=== PATIENT | female | born 1960 | race Caucasian/White ===

== ENCOUNTER 2024-09-20 13:26 | Emergency (ER) | payer BC, SELFPAY ==
--- NOTE | ~2024-09-20 | XR_ITS ---
XR ankle RT min 3V Ordering provider: Neli Wisdom NP History: . injury . Comparison: None. FINDINGS: BONES: Fracture in the distal metaphysis of the right fibula is noted. No other fractures seen.. JOINT SPACES: Normal. SOFT TISSUES: Normal. IMPRESSION: Fracture distal metaphysis of the right fibula. Reviewed, dictated and finalized at location A.
--- NOTE | 2024-09-20 13:28 | ED_ITS ---
HPI - Extremity Injury (Lower) General Chief Complaint: Extremity Injury, Lower Stated Complaint: Right Ankle Injury Time Seen by Provider: 09/20/24 14:20 Source: patient and RN notes reviewed Mode of arrival: ambulatory Limitations: no limitations History of Present Illness HPI Narrative: 63-year-old female presents with concern of for injury to her right ankle. She reports prior to arrival she was going to golf and she stepped in a hole. Reports lateral pain, swelling. Reports she is unable to bear weight on the ankle. She denies decreased strength, sensation, range of motion in the foot or digits. MD complaint: ankle injury Related Data Home Medications Medication Instructions Recorded Confirmed Last Taken Type hydroxyzine pamoate 25 mg capsule mg 09/20/24 Unknown History rizatriptan 10 mg tablet mg 09/20/24 Unknown History thyroid (pork) 30 mg tablet mg 09/20/24 Unknown History topiramate 200 mg tablet mg 09/20/24 Unknown History Allergies Allergy/AdvReac Type Severity Reaction Status Date / Time No Known Allergies Allergy Verified 09/20/24 13:42 Review of Systems Review of Systems: CONSTITUTIONAL: Denies malaise, chills, sweats, or fever. SKIN: Denies rash or itching, open skin, laceration, abrasion, redness, warmth MUSCULOSKELETAL: Reports right ankle pain and swelling NEUROLOGIC: Denies numbness, weakness All systems reviewed & are unremarkable except as noted in HPI and below PMFSH Comments At time of signature, agree with nursing past medical, surgical, social and fam paul history. There is no relevant family history pertinent to the presenting complaint Exam Narrative: GENERAL: Well-appearing, well-nourished, and in no acute distress. HEAD: Normocephalic, atraumatic. EYES: PERRLA, conjunctivae clear NECK: Supple. CHEST: Speaks in full sentences. No respiratory distress. HEART: Regular rate and rhythm. Normal and equal peripheral pulses. EXTREMITIES: Right ankle, foot, digits have grossly normal strength and sensation, grossly normal range of motion. Lateral edema with mild ecchymosis and no erythema. Normal sensation with sensitivity to light touch and pain. Lateral ankle tenderness. No open wounds, no skin tenting, no devitalized tissue or atrophy, no trophic changes, no obvious deformity, alignment normal, nearby joints and structures intact. Distal pulses palpable and equal bilaterally, skin warm, dry, pink. Capillary refill less than 3 seconds. SKIN: Warm, dry, no rash. NEURO: Alert and oriented x3. PSYCH: Normal mood and affect Course Course Emergency Course: Patient is aware of diagnosis, understands and agrees to treatment plan. Anticipatory guidance given. Patient agrees to follow-up as directed and is aware of reasons to seek care at the emergency department. Portions of this record may have been created with voice recognition software Level of Care: Express Care Visit Vital Signs Vital signs: Reviewed. Procedures Orthopedic Splinting/Casting Injury #1: Splinting/Casting Date: 09/20/24 Splinting/Casting Time: 15:13 Side: right Lower Extremity Injury Location: ankle OCL: short leg Pre-Procedure Neuro Vascular Exam: normal Post-Procedure Neuro Vascular Exam: normal Other Orthopedic Equipment: crutches MDM - Extremity Injury (Lower) MDM Narrative Medical decision making narrative: The patient was evaluated by myself in the [facility] care. History is obtained from patient who is an independent historian and physical exam was performed. Available medical records were reviewed at this time. Exam findings show no acute concerns or changes; patient is non-toxic appearing and is in no distress. Patient is appropriate for outpatient treatment and follow-up. I have evaluated and discussed social determinants of health with the patient that could potentially impact subsequent diagnosis and treatment plans. Patients injury and pain is consistent with musculoskeletal etiology. No signs of neurological or vascular compromise on exam. Compartments and tissues are soft without signs of compartment syndrome. Pain is felt appropriate for further evaluation on an outpatient basis. Imaging Data My impression: Images reviewed, interpreted by radiologist, agree, see report. Radiologist's impression: XR ankle RT min 3V Ordering provider: Neli Wisdom NP History: . injury . Comparison: None. FINDINGS: BONES: Fracture in the distal metaphysis of the right fibula is noted. No other fractures seen.. JOINT SPACES: Normal. SOFT TISSUES: Normal. IMPRESSION: Fracture distal metaphysis of the right fibula. Critical Care Time Critical Care Time Critical Care Time: No Discharge Plan Discharge Clinical Impression: Fibula fracture Qualifiers: Encounter type: initial encounter Fibula location: shaft Laterality: right Patient Disposition: Home Condition: Stable Instructions: Ankle Fracture (ED) Additional Instructions: Please rest, ice and elevate the affected extremity. Please take Motrin 600mg every 8 hours, as needed, for pain (take with food), take pain medicine for pain that is not controlled with ibuprofen. Follow up with Orthopedic Surgery in 1-2 days for further evaluation - please call for an appointment. Keep cast clean, dry and on. Please use garbage bag while showering to keep cast dry. Use crutches and do not bear weight on your right ankle. Please go to ER immediately for increased pain, tingling/numbness, swelling, redness, and fever Patient Language: Puerto Rican Prescriptions: New ibuprofen 800 mg tablet 800 mg PO Q6H PRN (Reason: pain) Qty: 30 0RF hydrocodone-acetaminophen 5-325 mg tablet 1 tablet PO Q6H PRN (Reason: pain) Qty: 14 0RF No Action rizatriptan 10 mg tablet topiramate 200 mg tablet hydroxyzine pamoate 25 mg capsule thyroid (pork) 30 mg tablet Follow-up/Referrals: Tenzin,Adi Morales MD [Primary Care Provider] - Sterling Velez MD [Physician] - Time of Disposition: 15:14
--- OUTSIDE RECORDS SUMMARY | 2024-09-20 13:34 | XMS_ITS | Referral Summary ---
Author Organization [facility] Address [address] [place] [address] Care Team Providers Care Hot Dip Plater Name Role Phone Adi Dave MD Primary Care Provider [phone] Valerio Herrera MD Unavailable [phone] Allergies Active Allergy Reactions Criticality Noted Date Comments Penicillins Rash Medium Medications topiramate (TOPAMAX) 200 mg tablet Take 1 tablet (200 mg total) by mouth 2 (two) times a day Active fluticasone-um eclidin-vilant er (Trelegy Ellipta) 100-62.5-25 mcg inhaler Inhale 1 puff daily Active hydrOXYzine (ATARAX) 25 mg tablet Take 1 tablet (25 mg total) by mouth nightly Active multivitamin tabletIndicati ons:Vitamin Deficiency Prevention Take 2 tablets by mouth regional extension service specialist before breakfast Active albuterol HFA (PROVENTIL HFA,VENTOLIN HFA,PROAIR HFA) 90 mcg/actuation inhaler Inhale 1 puff as needed 02/14/20 22 Active sod lnsjs-udrqvy-p queez bottle 2,300-700 mg kit Administer 2 sprays into each nostril 2 (two) times a day 1 kit 2 06/24/19 23 Active Additional Information Patient not taking.Reported on 12/29/2023 oxyCODONE (ROXICODONE) 5 mg immediate release tabletIndicati ons:Pain Take 1 tablet (5 mg total) by mouth every 4 (four) hours as needed for pain 30 tablet 06/24/19 23 Active Additional Information Patient not taking.Reported on 12/29/2023 HYDROcodone-ib uprofen (VICOPROFEN) 5-200 mg per tablet 10/03/19 23 Active rizatriptan (MAXALT) 10 mg tablet 03/24/20 23 Active budesonide (Pulmicort) 0.5 mg/2 mL nebulizer solution Mix 2 ml into 240 ml nasal saline sinus rinse and perform nasal rinse. Squeeze half of the bottle in each nostril two times daily. 180 mL 5 04/03/20 23 Active Additional Information Patient not taking.Reported on 12/29/2023 Nurtec ODT tablet,disinte grating 12/08/19 24 Active semaglutide (Ozempic) 0.25 mg or 0.5 mg (2 mg/3 mL) pen injector injection inject (0.25MG) by subcutaneous route every week 10/30/19 24 Active zavegepant (Zavzpret) 10 mg/actuation spray,non-aero han Administer into affected nostril(s) Active nortriptyline (PAMELOR) 10 mg capsule TAKE 2 CAPSULES (20 MG TOTAL) BY MOUTH NIGHTLY 180 capsule 3 09/10/19 25 026 Active nortriptyline (PAMELOR) 10 mg capsule Take 2 capsules (20 mg total) by mouth nightly 180 capsule 1 03/07/20 24 025 Discontinued Active Problems Problem Noted Date Diagnosed Date Nausea without vomiting 02/01/2024 Assessment & Plan (02/01/2024 6:39 PM CDT): Has intermittent nausea epigastric discomfort which is better with food. Upper endoscopy was normal. Negative ultrasound. CT scan we are waiting for the report from [address] Valerio Herrera her urologist for follow-up of renal cell carcinoma. In the meantime the findings suggest this may be a functional disorder and will begin nortriptyline 10 mg p.o. q.h.s.. Patient was to notify me within 3 weeks of her response. Epigastric pain 12/29/2023 Assessment & Plan (02/01/2024 6:40 PM CDT): Occurs with the nausea which is worse on empty stomach. Upper endoscopy negative. Ultrasound normal. CT scan recently performed and have asked the patient to get me a copy. Begin nortriptyline 10 mg q.h.s. Assessment & Plan (12/29/2023 6:50 PM CDT): Ultrasound negative without gallstones. Persistent for several months. This was also present in 2014. Due to hematemesis needs upper endoscopy to rule out peptic disease and neoplasm and will decide on further treatment at that time. Regarding the recurrent nausea consider also possibility of migraine variant Abdominal pain, epigastric 12/29/2023 Chronic sinusitis 04/03/2022 Overview (04/03/2022): Added automatically from request for surgery [id number] Urinary urgency 02/27/2022 Assessment & Plan (02/27/2022 7:37 PM CDT): Discussed options for management of urinary urgency and urge incontinence. Will check UA/C&S first. Candidal vulvovaginitis 02/27/2022 Assessment & Plan (02/27/2022 7:34 PM CDT): Mycolog II ointment BID for 7 days to rash in right groin. Diflucan 150 po time one. Renal cell carcinoma 07/14/2020 Assessment & Plan (12/29/2023 6:53 PM CDT): Following previous surgery Patient had recent CT scan obtained through urologist Dr. Valerio Herrera at the CT scanner off of [address] [address] I have asked to review a copy of this report particularly with regards to her epigastric pain and her history of pouch vaginal fistula Sinus problem 03/09/2020 Assessment & Plan (03/09/2020 11:14 AM BLACK LEATHER TRIMMER): Patient was recently exposed to COVID and is currently on abx and steroids. In addition: Self-isolate 10 days from start of symptoms Increase fluid intake Report new or worsening symptoms Warning signs warranting immediate medical care: chest pain, trouble breathing, worsening shortness of breath Encounter for gynecological examination without abnormal finding 04/02/2017 Assessment & Plan (02/27/2022 7:33 PM CDT): Pelvic exam and breast exam done. Schedule mammogram. Return in one year. Assessment & Plan (09/20/2020 7:41 PM CDT): Pap smear and breast exam done. Schedule mammogram and DEXA. Return in one year. Assessment & Plan (04/02/2017 10:16 PM BLACK LEATHER TRIMMER): Pelvic exam and breast exam done. Calcium and vitamin D list given to patient. Return in one year. 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 She had previous repairs 2002 and 2004 and has persistence of the J pouch vaginal fistula. Assessment & Plan (12/29/2023 6:51 PM CDT): This is really a pouch vaginal fistula and will plan on pouchoscopy when this can be arranged. The upper endoscopy takes precedence at this time due to the recent hematemesis. Patient 'spouch function has been relatively stable. The Ozempic has significantly reduced bowel movement frequency. Dyspnea Resolved Problems Problem Noted Date Diagnosed Date Resolved Date Chronic obstructive lung disease 02/19/2019 12/29/2023 Immunizations Immunization Administration Dates Next Due Influenza, Quadrivalent, Hig h Dose, Preservative Free, Intrr 02/03/2021 Influenza, Quadrivalent, Rec ombinant, Egg Free, Preservative Free, Intramuscular 02/02/2019 Influenza, Trivalent, IM (MDV) 02/16/2021 Pfizer SARS-CoV-2 Monovalent Vaccination (12+ Yrs) PURPLE 12/04/2020 Social History Tobacco Use Types Packs/Day Years Used Date Smoking Tobacco: Former Cigarettes 2 10 0 05/05/1974 - 05/05/1984 Smokeless Tobacco: Never Alcohol Use Standard Drinks/Week Comments Yes 0 (1 standard drink = 0.6 oz pur e alcohol) AUDIT-C Answer Date Recorded Q1: How often do you have a drink containing alc ohol? 2-3 times a week 10/04/2022 Average Number of Drinks Not on file 023 Frequency of Binge Drinking Not on file 06/2022 PHQ-2 Answer Date Recorded PHQ-2 Total Score (If total score is 3 or more points, staff should administer the PHQ-9) 0 09/19/2020 Personal Safety Answer Date Recorded Have you ever been in or are you currently in a harmful physical or emotional relationship or is someone making you feel afraid or unsafe? 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 on file Not on file Not on file Last Filed Vital Signs Vital Sign Reading Time Taken Comments Blood Pressure 112/59 01/01/2024 3:45 PM CDT Pulse 72 01/01/2024 3:45 PM CDT Temperature 36.4 C (97.6 F) 01/01/2024 2:06 PM CDT Respiratory Rate 16 01/01/2024 3:45 PM CDT Oxygen Saturation 100% 01/01/2024 3:45 PM CDT Inhaled Oxygen Concentration - - Weight 70.3 kg (155 lb) 01/01/2024 2:06 PM CDT Height 154.9 cm (5' 1 ) 01/01/2024 2:06 PM CDT Body Mass Index 29.29 01/01/2024 2:06 PM CDT Plan of Treatment Not on file Procedures Procedure Name Priority Date/Time Associated Diagnosis Comments SCREENING MAMMOGRAM BILATERAL W DIETER Schedule Routine, Read Routine (OP Routine) 12/04/2020 11:57 AM CDT Encounter for screening mammogram for malignant neoplasm of breast PAP AND HIGH RISK HPV, REFLEX TO GENOTYPING Routine 09/19/2020 1:43 PM CDT Cervical cancer screening from Last 3 Months or Most Recently Relevant to Health Maintenance Results * Screening Mammogram Bilateral W Dieter (12/04/2020 11:57 AM CDT) Anatomical Region Laterality Modality Breast Bilateral Mammography Narrative 12/05/2020 10:51 AM CDT Mammogram Technique: Bilateral Digital Breast Tomosynthesis, Bilateral C-view 2D Screening mammogram. Views obtained: bilateral craniocaudal and bilateral mediolateral oblique. Computer Aided Detection was performed. Mammogram Findings: The present examination has been compared to a prior imaging study performed at [facility] on 10/14/2016. There are scattered areas of fibroglandular density. There is no suspicious abnormality in either breast. Impression: There is no mammographic evidence of malignancy. Annual screening mammography is recommended. OVERALL FINAL ASSESSMENT: BI-RADS CATEGORY 1: Negative. Procedure Note Daina Desai MD - 12/05/2020 Mammogram Technique: Bilateral Digital Breast Tomosynthesis, Bilateral C-view 2D Screening mammogram. Views obtained: bilateral craniocaudal and bilateral mediolateral oblique. Computer Aided Detection was performed. Mammogram Findings: The present examination has been compared to a prior imaging study performed at [facility] on 10/14/2016. There are scattered areas of fibroglandular density. There is no suspicious abnormality in either breast. Impression: There is no mammographic evidence of malignancy. Annual screening mammography is recommended. OVERALL FINAL ASSESSMENT: BI-RADS CATEGORY 1: Negative. Bell Brennan MD IM MAMMO PROCEDURES Sol l Result * Pap and High Risk HPV, reflex to Genotyping (09/19/2020 1:43 PM CDT) Swab (Pap test) 09/19/2020 1 :43 PM CDT 09/21/2020 1:37 PM CDT Narrative PATHOLOGY [facility] - 09/24/2020 2:00 PM CDT EPIC results best viewed via link to PDF [address] [address] Tele: Gaby Rojas MD - Privacy Officer CYTOLOGY REPORT Patient Name: ILA PECK Address: [address] [place] [address] Gender: F : 1960 (Age: 59) Service: Laboratory Location: Lab Hospital #: [id number] Patient Type: Ref Lab Taken: 09/19/2020 Reported: 09/24/2020 Physician(s): Bell Brennan M.D. FINAL DIAGNOSIS: Specimen Type: - ThinPrep Pap and HPV w/ reflex Genotyping Statement of Specimen Adequacy: Source: Cervical/Endocervical - Satisfactory for interpretation - Endocervical /Transformation Zone component present - Case screened using computer assisted imaging technology General Categorization: - Negative for intraepithelial lesion or malignancy Interpretation: - Atrophic pattern - Specimen sent for HPV testing per physician order. jat/09/24/2020 14:00 ESDRAS Leung (ASCP) Report Reviewed and Electronically Signed By ESDRAS Leung (ASCP) Clerical Data Follow A; [id number] ADDENDA: Addendum Comment Ancillary Testing: HPV High Risk Group (16, 18, 31, 33, 35, 39, 45, 51, 52, 56, 58, 59, 66 and 68) - Not Detected Reference Range: Not Detected This test was performed using the ELOY 4800 ESDRAS Araiza (ASCP) Date Ordered: 09/24/2020 Status: Signed Out Date Complete: 09/25/2020 By: ESDRAS Araiza (ASCP) Date Reported: 09/25/2020 CLINICAL DIAGNOSIS AND HISTORY Menstrual History: Menopausal REPORT IMAGES AND/OR SCANNED DOCUMENTS ONLY VIEWABLE IN PDF FORMAT The Pap test is a screening test used to aid in the detection of cervical cancer and its precursors. It should not be the sole means by which malignant and premalignant lesions are diagnosed. Both false negative and false positive results may occur. It also has poor sensitivity for the detection of endometrial lesions and should not be used to evaluate suspected endometrial abnormalities. For these reasons it is most important to obtain Pap tests at regular intervals, as recommended by your physician or nurse practitioner. 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 Power of Financial Analyst Accountant 11/01/2020 9:43 AM ADVANCE DIRECTIVE 08/11/2020 5:51 AM * Full Code (Latest Code Status on File) Date Activated Date Inactivated Comments 01/01/2024 1:57 PM 01/01/2024 8:10 PM * Full Code Date Activated Date Inactivated Comments 08/11/2020 2:34 PM 08/12/2020 6:26 PM * Full Code Date Activated Date Inactivated Comments 08/11/2020 2:34 PM 08/11/2020 2:34 PM Care Teams Hot Dip Plater Relationship Specialty [place] [id number] [address] PCP - General Internal Medicine 03/13/20 [place] [address] [place] [id number] Consulting Physician Urology 08/11/20
--- OUTSIDE RECORDS SUMMARY | 2024-09-20 13:34 | XMS_ITS | Continuity of Care Document ---
Author Organization [facility] Address [address] [place] [address] Phone Care Team Providers Care Utility Operator Name Role Phone Manny Caputo MD Unavailable Unavailable Allergies, Adverse Reactions, Alerts Substance Reaction Status Criticality penicillin G Active No Information Medications Medication Instructions Dosage Effective Dates (start - stop) Status Comments Vigamox 0.5 % Eye Drops - Active Procedures Procedure Date Eye Exam, New Patient Advance Directives Directive Yes / No Effective Date File Name Resuscitation Not Answered N/A N/A Life Support Not Answered N/A N/A Intubation Not Answered N/A N/A Antibiotics Not Answered N/A N/A IV Fluid Support Not Answered N/A N/A Tube Feed Not Answered N/A N/A Other Directive N/A N/A WARNING:The information contained in this section is historical and is provided for information only and does not constitute a legal document or any assurance that the information is still accurate. Please verify the information with the moreira of the legal document before using it for clinical purposes. Encounters Encounter Description Practice Location Reason(s) For Visit Diagnoses Date Provider Providers Copied on Encounter [facility], [address], [place], [place], [id number], [place] tel:[phone] [place] Professional No Information 2 Patito Bryant. [address] [facility], [address], [place], [place], [id number], [place]. tel:[phone] Referring Provider: Kadeem Samuels OD, [facility] [address], [place], [address]. tel:[phone] Family History Family Member Type Diagnosis Age At Onset No Information Payers Payer name Insurance type Covered green party ID Authoriza tion(s) No Information Social History Type Description Quantity Date Captured Comments Alcohol Use Details Unknown Caffeine Use Details No Tobacco Use Status No Information Smoking Status No Information Sex Female Chief Complaint And Reason For Visit No Information Reason For Referral Reason For Referral No Information History Of Present Illness Encounter Date Complaint History Of Prese nt Illness No Information Functional Status Date Functional Assessmen t No Information Instructions Date Instruction Additional Infor mation healing areas kerati tis od with stromal haze without stain - cont baltazar/poly/dex qidno cl's - 1week Assessments Type Assessment Date No Information Patient Care Teams Name Effective Dates (start - stop) Status Members No Information
--- OUTSIDE RECORDS SUMMARY | 2024-09-20 13:34 | XMS_ITS | Clinical Summary ---
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 I have asked to review a copy of this report particularly with regards to her epigastric pain and her history of pouch vaginal fistula Sinus problem 03/09/2020 Assessment & Plan (03/09/2020 11:14 AM CHANGE ROOM ATTENDANT): Patient was recently exposed to COVID and [...] year. Assessment & Plan (04/02/2017 10:16 PM CHANGE ROOM ATTENDANT): Pelvic exam and breast exam done. Calcium [...] SARS-CoV-2 Monovalent Vaccination (12+ Yrs) PURPLE 12/04/2020 Surgical History Surgery Date Site/Laterality Comments STERILIZATION 05/05/1995 - 05/04/1996 CERVIX LESION DESTRUCTION 05/05/1992 - 05/04/1993 COLECTOMY 05/05/1996 - 05/04/1997 RECTOVAGINAL FISTULA CLOSURE 05/05/2006 - 05/04/2007 RECTOVAGINAL FISTULA CLOSURE 05/05/2007 - 05/04/2008 RECTOVAGINAL FISTULA CLOSURE 05/05/2008 - 05/04/2009 LAPAROSCOPY exploratory for ovarian cyst WRIST SURGERY 05/05/1998 - 05/04/1999 Right HAND SURGERY 05/05/1998 - 05/04/1999 Left finger nerve repair LAPAROSCOPIC PARTIAL NEPHRECTOMY 08/03/2020 - 09/01/2020 Left robotic REVISION / TAKEDOWN COLOSTOMY 05/05/1996 - 05/04/1997 FRACTURE SURGERY 05/05/1997 - 05/04/1998 TUBAL LIGATION 1995 ABDOMINAL SURGERY August 11 2020 PARTIAL NEPHRECTOMY COLONOSCOPY Medical History Medical History Date Comments Ulcerative colitis (HCC) 1996 Toxic shock syndrome (HCC) 1988 Cervical dysplasia 1992 Wrist fracture 1998 right Rectovaginal fistula 2006 PONV (postoperative nausea and vomiting) History of COVID-19 03/10/2020 COPD (chronic obstructive pulmonary disease) (HC C) Renal cell carcinoma (HCC) 08/2020 1985 1990 GERD (gastroesophageal reflux disease) 1986 Anemia 1970 Arthritis 1989 Migraines 1976 Autoimmune disease 1987 Chronic sinusitis Urinary urgency 02/27/2022 Candidal vulvovaginitis 02/27/2022 Chronic headache disorder 01/30/2016 Dyspnea Chronic obstructive lung disease (HCC) 9 Nausea without vomiting 02/01/2024 Family History Medical History Relation Name Comments Hypertension Father Reji Stroke Father Reji Cancer Mother Opal Esparza Hypertension Mother Opal Esparza Breast cancer Neg Hx Colon cancer Neg Hx Deep vein thrombosis Neg Hx Ovarian cancer Neg Hx Pulmonary embolism Neg Hx Uterine cancer Neg Hx Relation Name Status Comments Father Reji Mother Opal Esparza Social History Tobacco Use Types Packs/Day Years [...] on file Legal Sex Female 8:15 PM CHANGE ROOM ATTENDANT Gender Identity Not on file Sexual Orientation Not on file 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 Not on file Not on file Not on file Obstetrics History Para Term AB IAB SAB Ectopic Multiple Livin g Live Births 2 2 2 2 2 Date Outcome GA Total Labor Labor/2nd/3rd Weight Sex Type Anes PTL Maria Isabel A1 A5 Name Clin 1985 Term 44w0 d 3.572 kg (7 lb 14 oz) F Vag-S pont N Living 1990 Term 42w0 d 4.394 kg (9 lb 11 oz) M Vag-S pont N Living Last Filed Vital Signs Vital Sign Reading [...] 01/01/2024 2:06 PM CDT Plan of Treatment Health Maintenance Due Date Last Done Comments Colon Cancer Screening-Colonoscopy 1960 Hepatitis C Screening 1960 DTaP/Tdap/Td Vaccine (1 - Tdap) 12/25/1971 Hepatitis B Screening 1978 Pneumococcal vaccine <65 (1 of 2 - PCV) 12/25/1979 Zoster Vaccine (1 of 2) 2010 Cervical Cancer Screening 09/19/20212020, 01/17/2016, 08/16/2013, Additional history exists Depression Screening 09/19/2021 09/19/2020 Breast Cancer Screening-Mammogram 12/04/2021 12/04/2020, 01/10/2017, 10/14/2016, Additional history exists Regular Well Visit/Exam 18-64 02/27/2023, 09/19/2020, 04/02/2017 Covid-19 Vaccine (2023- 5 season) 2024 02/16/2021, 12/04/2020, 06/26/2020 Influenza Vaccine (Season Ended) 2025 02/16/2021, 02/03/2021, 02/02/2019 Procedures Procedure Name Priority Date/Time Associated Diagnosis [...] to a prior imaging study performed at [facility] on 10/14/2016. There are scattered areas of [...] to a prior imaging study performed at [facility] on 10/14/2016. There are scattered areas of fibroglandular density. There is no suspicious abnormality in either breast. Impression: There is no mammographic evidence of malignancy. Annual screening mammography is recommended. OVERALL FINAL ASSESSMENT: BI-RADS CATEGORY 1: Negative. us Bell Brennan MD IMG MAMMO PROCEDURES Sol l Result * Pap and High Risk HPV, reflex to Genotyping (09/19/2020 1:43 PM CDT) Swab (Pap test) 09/19/2020 1 :43 PM CDT 09/21/2020 1:37 PM CDT Narrative PATHOLOGY [facility] - 09/24/2020 2:00 PM CDT [facility] results best viewed via link to PDF [address] [address] Tele: Gaby Rojas MD - Contract Coordinator CYTOLOGY REPORT Patient Name: ILA PECK Address: [address] [place] [address] Gender: F : 1960 (Age: 59) Service: Laboratory Location: Lab [facility] #: [id number] Patient Type: [facility] Lab Taken: 09/19/2020 Reported: 09/24/2020 Physician(s): Bell [...] sent for HPV testing per physician order. 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 11/01/2020 9:43 AM ADVANCE DIRECTIVE 08/11/2020 5:51 AM * Full Code (Latest Code Status on File) Date Activated Date Inactivated Comments 01/01/2024 1:57 PM 01/01/2024 8:10 PM * Full Code Date Activated Date Inactivated Comments 08/11/2020 2:34 PM 08/12/2020 6:26 PM * Full Code Date Activated Date Inactivated Comments 08/11/2020 2:34 PM 08/11/2020 2:34 PM Care Teams Application Processor Relationship Specialty [place] [id number] [facility] [address] [place] [address] PCP - General Internal Medicine 03/13/20 [place] [id number] [address] Consulting Physician Urology 08/11/20
--- OUTSIDE RECORDS SUMMARY | 2024-09-20 13:35 | XMS_ITS ---
Author Organization [facility] ([address]) Address [address] [place] [address] Care Team Providers Care Speech And Language Assistant Name Role Phone Dr. Nael Andersen Unavailable [phone] Shayna Schrader Unavailable [phone] Allergies Allergen (clinical drug ingredient) Drug/Non Drug Allergy documented on EMR Reaction Allergy Type Onset Date Status Penicillin rash Drug Allergy Active REASON FOR VISIT Headache follow-up, MOH, Cervical DDD, Insomnia Medications Medication SIG (Take, Route, Frequency, Duration) Notes Start Date End Date Status TRELEGY ELLIPTA 100 mcg-62.5 mcg-25 mcg/inh for 30 Active Zavzpret 10 MG/ACT 1 spray Nasally once, no repeat dose for 30 days As needed 12/04/2023 Active NURTEC ODT 75 MG 1 TAB(S) ORALLY ONCE PRN for 30 DAYS *Please review for potential replacement for e-prescription and drug interaction check* 06/05/2023 Active TOPIRAMATE 200 mg 1 tab(s) orally 2 times a day for 30 days Active hydrOXYzine HCl 25 MG as directed orally every 4 hours 11/07/2022 Active ALBUTEROL (EQV-PROAIR HFA) 90 MCG/INH for 16 *Please review for potential replacement for e-prescription and drug interaction check* Active Topiramate 200 MG 1 tab(s) orally 2 times a day for 30 days Active Budesonide 0.5 MG/2ML for 30 Active HYDROcodone-Ibuprofen 5-200 MG for 7 Active Trelegy Ellipta 100 MCG-62.5 MCG-25 MCG/INH for 30 *Please review and pick correct strength-formulatio n from [employer] options. If intended option is not shown, discontinue and re-order from Quick Search* Active HYDROCODONE-IBUPROFEN 5 mg-200 mg for 7 Active HYDROXYZINE hydrochloride 25 mg as directed orally every 4 hours 11/07/2022 Active BUDESONIDE 0.5 mg/2 mL for 30 Active Social History Tobacco Use: Social History Observation Description Date Details (start date - stop date) Former Smoker NA - NA Smoking Smart Form: Question Answer Notes Are you a: former smoker Additional Findings:Tobacco Non-User Ex-pipe smo ker Problems Problem Type SNOMED Code ICD Code Onset Dates Problem Status W/U Status Risk Notes Problem Migraine with aura (2098453) Migraine with aura, not intractable, without status migrainosus (G43.109) Active confirmed Encounters Encounter Location Date Provider Diagnosis [facility] [address] [address] 03/25/2024 Shayna Schrader Chronic migraine without aura, not intractable, without status migrainosus G43.709 ; Drug-induced headache, not elsewhere classified, not intractable G44.40 ; Other cervical disc degeneration, unspecified cervical region M50.30 and Insomnia, unspecified G47.00 Assessments Encounter Date Diagnosis (ICD Code) Assessment Notes Treatment Notes Treatment Clinical Notes Section Notes 03/25/2024 Chronic migraine without aura, not intractable, without status migrainosus (ICD-10 - G43.709) 03/25/2024 Drug-induced headache, not elsewhere classified, not intractable (ICD-10 - G44.40) 03/25/2024 Other cervical disc degeneration, unspecified cervical region (ICD-10 - M50.30) 03/25/2024 Insomnia, unspecified (ICD-10 - G47.00) Plan Of Treatment Next Appt Details Follow Up: , Reason: Evaluat ion and Management Progress Notes * Ila PECK LDOB:1960 (63 yo F)Acc No.[id number]:03/25/2024 Progress Notes Patient: Brisa FLETCHERJimmieIla Provider: Gustavo leydi Schrader APRN :1960 A ge:63 Y S ex:Female Date:03/25/2024 Address:[address], [place], [id number] Subjective: * Chief Complaints: * 1 . Headache follow-up. 2. MOH. 3. Cervical DDD. 4. Insomnia. * HPI: * Introduction: I had the pleasure of seeing Jose Peck, who presented for follow-up for chronic migraine, MOH, Cervical DDD, and insomnia. * Initial History: INITIAL VISIT HISTORY: -Headache Onset: Childhood, persistent throughout her adult life. -Headache Description: Prodrome: None. Aura: None. Headache phase: The patient's headache starts sometimes unilateral, more often bilateral on the frontotemporal region, time to reach peak intensity is more gradual. Describes the quality as sharp/throbbing, also endorses pulsation, prefers to lie down because movement/activity makes it worse, associated with some light and sound sensitivity, seldom gets nausea, sometimes gets dizzy. It can last hours to days if not successfully treated. The description is compatible with migraine without aura. P ostdrome: None. -Headache Triggers: Stress, certain strong odors (perfume), caffeine withdrawal, seasonal allergies, sinus infection -Headache Frequency: The patient is currently experiencing 15-20 Headache days/month and 8-10 Migraine days/month. * Previous Impression & Plan: Notes P revious Diagnoses: 1 . Chronic migraine without aura, not intractable, without status migrainosus - G43.709 (Primary) 2 . Drug-induced headache, not elsewhere classified, not intractable - G44.40 3 . Other cervical disc degeneration, unspecified cervical region - M50.30 4 . Insomnia, unspecified - G47.00 P revious Recommendations: 1 . Abortive: Start trial of Naratriptan 2.5 mg. Preventive: Start on Botox. Patient meets criteria for chronic migraine with > 15 headache days/month and > 8 migraine days per month, and has failed > 2 standard preventives and is therefore a good candidate for Botox. For now we will continue Topiramate, but if she has good response with Botox then we will stop Topiramate. 2 . Educated patient regarding medication overuse headaches. Advised to avoid taking NSAIDs or acetaminophen > 15 days/month, triptans or DHE > 10 days/month, butalbital > 10 days/month to avoid rebound headaches. 3 . Monitor. If symptoms worsen or if myelopathic symptoms develop plan to repeat C-spine MRI. 4 . Recommended melatonin 5 to 10 mg an hour before bedtime. If she does not respond to headache prevention and continues to report fatigue, we will consider if sleep study is appropriate but we will not chamberlain into that now. Discussed sleep hygiene and stress reduction. Discussed how sleep disruption can affect headaches or migraine. * Interval History: Notes P harmacologic Treatment: C urrent abortive treatment: N aratriptan 2.5 mg, Zavzpret NS P revious abortive treatment: H ydrocodone/Ibuprofen, Rizatriptan, Ubrelvy, Nurtec C urrent preventive treatment: B otox, Topiramate 4 00 mg daily (been on it for a few years, previously it has marked effect but over time it has waned and headache frequency started to climb), A mitriptyline (started in February 2024 for GI issues, previously tried for migraines and it was ineffective) P revious preventive treatment: A mitriptyline (taking for GI issues, ineffective for migraines) M edication overuse: Not present O ther modalities: Chiropractic, Massage Therapy (both provided temporary relief) H eadache Frequency: I nitial/baseline headache/migraine days/month: 15-20/8-10 L ast visit headache/migraine days/month: 8-12 (Reports that she does not feel the last cycle of Botox was not as effective. She recently started amitriptyline for GI issues) C urrent headache/migraine days/month: / I nterval History: L ast visit was on for Botox injection.. * ROS: A LLERGY: runny nose Y es. i tchy eyes Y es. C ONSTITUTIONAL: night sweats Y es. f atigue Y es. E NT: Positive s /p sinus surgery. R ESPIRATORY: shortness of breath Y es. O PHTHALMOLOGY: itching Y es. E NDOCRINOLOGY: fatigue Y es. C ARDIOLOGY: shortness of breath y es. G ASTROENTEROLOGY: nausea y es. U ROLOGY: no d ifficulty urinating. D ERMATOLOGY: no r steven. N EUROLOGY: headache Y es. M USCULOSKELETAL: joint stiffness Y es. l eg cramps Y es. j oint pain Y es. P SYCHOLOGY: high stress level yes. * Medical History: M igraine, S/p sinus surgery, COPD (?[id number] given reported family history), HTN, Ulcerative colitis s/p colectomy, Renal cell carcinoma. * Surgical History: R ight hand surgery , Partial nephrectomy , Sinus surgery , Colectomy . * Hospitalization/Major Diagno stic Procedure: T oxic shock syndrome . * Family History: F ather: No, diagnosed with Stroke. M other: No, diagnosed with Cancer. P aternal Grand Father: No. P aternal Grand Mother: No. M aternal Grand Father: No. M aternal Grand Mother: No. P aternal uncle: No. P aternal aunt: No. M aternal uncle: Yes. M aternal aunt: Yes. S iblings: Yes. C hildren: Yes. * Social History: M arital Status What is your marital status? w idowed A lcohol Screening Do you ever drink alcoholic beverages? Y es C affeine: Yes. S moking Smart Form Are you a: f ormer smoker Additional Findings:Tobacco Non-User E x-pipe smoker E xercise What kind(s) of exercise do you perform regularly? w alking,other How often do you perform this exercise? e very other day O ccupation Are you currenly employed? Y es Have you had any job with high exposure to fumes, chemicals, dust or other noxious substances? Y es Are you currently a student? N o * Medications: T aking TOPIRAMATE 200 mg tablet 1 tab(s) orally 2 times a day , Taking TRELEGY ELLIPTA 100 mcg-62.5 mcg-25 mcg/inh powder , Taking BUDESONIDE 0.5 mg/2 mL suspension , Taking HYDROCODONE-IBUPROFEN 5 mg-200 mg tablet , Taking HYDROXYZINE hydrochloride 25 mg tablet as directed orally every 4 hours , Taking ALBUTEROL (EQV-PROAIR HFA) 90 MCG/INH AEROSOL , Notes to Pharmacist: *Please review for potential replacement for e-prescription and drug interaction check*, Taking Topiramate 200 MG Tablet 1 tab(s) orally 2 times a day , Taking Trelegy Ellipta 100 MCG-62.5 MCG-25 MCG/INH POWDER , Notes to Pharmacist: *Please review and pick correct strength-formulation from [employer] options. If intended option is not shown, discontinue and re-order from Quick Search*, Taking Budesonide 0.5 MG/2ML Suspension , Taking HYDROcodone- Ibuprofen 5-200 MG Tablet , Taking NURTEC ODT 75 MG TABLET, DISINTEGRATING 1 TAB(S) ORALLY ONCE PRN , Notes to Pharmacist: *Please review for potential replacement for e-prescription and drug interaction check*, Taking hydrOXYzine HCl 25 MG Tablet as directed orally every 4 hours , Taking Zavzpret 10 MG/ACT Solution 1 spray Nasally once, no repeat dose As needed * Allergies: P enicillin: rash. Objective: * Vitals: * Examination: G eneral examination: General appearance: P leasant, well-developed, no distress. HEENT: P upils equal, round and reactive to light. No conjunctival injection. No tenderness to palpation over the maxillary sinuses. No turbinate hypertrophy. Tympanic membranes appear normal. No oral lesions. No tenderness over the occipital notch bilaterally. Oral cavity: N ormal, no lesions. Neck, thyroid : S upple, non-tender, no anterior cervical lymphadenopathy. Breasts : N ot performed. Heart: R RR, S1-S2, no murmurs, no rubs, no gallops. Lungs: C lear to auscultation and percussion in all lung aragon. Abdomen: S oft, NT/ND, normal active bowel sounds. Neurologic exam: A lert and oriented x 4. Fluent speech. Intact recall, fund of knowledge. Appropriate affect. PERRL. EOMI without nystagmus. No visual field cut. Facial sensation intact to light touch and pinprick in bilateral V1/V2/V3. Facial movements normal and symmetric. Hearing intact to finger rub bilaterally. Palate symmetrically upgoing. Tongue midline. Motor 5/5 strength in all extremities. Reflexes 2+/2 and symmetric in all extremities. Bilateral flexor plantar responses. Sensory exam intact to light touch, pinprick, vibration, and proprioception in all extremities. Cerebellar testing no ataxia or dysmetria. Gait normal, negative Romberg, intact tandem. Skin: N ormal, no rash, urticaria, angioedema. Peripheral pulses: n ormal (2+) bilaterally. Back: S he has mild tenderness over the bilateral occipital notch. She has trigger point in the left levator. S he has slightly/mildly restricted ROM of her cervical spine with turning to either direction. Extremities: N ormal ROM, no clubbing, no cyanosis, no edema. Genitalia: N ot performed. Assessment: * Assessment: 1. C hronic migraine without aura, not intractable, without status migrainosus - G43.709 (Primary) 2 . D rug-induced headache, not elsewhere classified, not intractable - G44.40 3 . O ther cervical disc degeneration, unspecified cervical region - M50.30 4. I nsomnia, unspecified - G47.00 Plan: * Treatment: * Procedure Codes: 9 6160 PT-FOCUSED HLTH RISK ASSMT, G8427 DOC MEDS VERIFIED W/PT OR RE, G2211 Complex e/m visit add on * Follow Up: R clinton: Evaluation and Management * Billing Information: * Visit Code: 58960 Office Visit, Est Pt., Level 4. Modifiers: 25 34435 Office Visit, Est Pt., Level 3. Modifiers: 25 24594 Office Visit, Est Pt., Level 5. Modifiers: 25 * Procedure Codes: 54412 PT-FOCUSED HLTH RISK ASSMT. G8427 DOC MEDS VERIFIED W/PT OR RE. G2211 Complex e/m visit add on. * Electronic signature of MELYSSA Liang on 09/20/2024 at 01:34 PM CDT Sign off status: Pending * Provider: Gustavo Schrader APRN Date: 05/25/2023 Generated for Darcie morrissey/Dennise/Melly on: 0 09/20/2024 01:34 PM CDT History and Physical Notes * HPI (History of Present Illness) Category Sub-Category Detail Notes Category Notes *Introduction I had the pleasure of seeing Ila Peck, who presented for follow-up for chronic migraine, MOH, Cervical DDD, and insomnia *Initial History INITIAL VISIT HISTORY: -Headache Onset: Childhood, persistent throughout her adult life. -Headache Description: Prodrome: None. Aura: None. Headache phase: The patient's headache starts sometimes unilateral, more often bilateral on the frontotemporal region, time to reach peak intensity is more gradual. Describes the quality as sharp/throbbing, also endorses pulsation, prefers to lie down because movement/activity makes it worse, associated with some light and sound sensitivity, seldom gets nausea, sometimes gets dizzy. It can last hours to days if not successfully treated. The description is compatible with migraine without aura. Postdrome: None. -Headache Triggers: Stress, certain strong odors (perfume), caffeine withdrawal, seasonal allergies, sinus infection -Headache Frequency: The patient is currently experiencing 15-20 Headache days/month and 8-10 Migraine days/month *Previous Impression & Plan Notes Previous Diagnoses:1. Chroni c migraine without aura, not intractable, without status migrainosus - G43.709 (Primary)2. Drug-induced headache, not elsewhere classified, not intractable - G44.403. Other cervical disc degeneration, unspecified cervical region - M50.304. Insomnia, unspecified - G47.00Previous Recommendations:1. Abortive: Start trial of Naratriptan 2.5 mg. Preventive: Start on Botox. Patient meets criteria for chronic migraine with > 15 headache days/month and > 8 migraine days per month, and has failed > 2 standard preventives and is therefore a good candidate for Botox. For now we will continue Topiramate, but if she has good response with Botox then we will stop Topiramate.2. Educated patient regarding medication overuse headaches. Advised to avoid taking NSAIDs or acetaminophen > 15 days/month, triptans or DHE > 10 days/month, butalbital > 10 days/month to avoid rebound headaches. 3. Monitor. If symptoms worsen or if myelopathic symptoms develop plan to repeat C-spine MRI.4. Recommended melatonin 5 to 10 mg an hour before bedtime. If she does not respond to headache prevention and continues to report fatigue, we will consider if sleep study is appropriate but we will not chamberlain into that now. Discussed sleep hygiene and stress reduction. Discussed how sleep disruption can affect headaches or migraine *Interval History Notes Pharmacologic Treatment:Curr ent abortive treatment: Naratriptan 2.5 mg, Zavzpret NSPrevious abortive treatment: Hydrocodone/Ibuprofen, Rizatriptan, Ubrelvy, NurtecCurrent preventive treatment: Botox, Topiramate 400 mg daily (been on it for a few years, previously it has marked effect but over time it has waned and headache frequency started to climb), Amitriptyline (started in February 2024 for GI issues, previously tried for migraines and it was ineffective)Previous preventive treatment: Amitriptyline (taking for GI issues, ineffective for migraines)Medication overuse: Not presentOther modalities: Chiropractic, Massage Therapy (both provided temporary relief)Headache Frequency:Initial/baseline headache/migraine days/month: -/12-12Last visit headache/migraine days/month: (Reports that she does not feel the last cycle of Botox was not as effective. She recently started amitriptyline for GI issues)Current headache/migraine days/month: /Interval History:Last visit was on 02/26/2024 for Botox injection. Examination Category Sub-Category Detail Notes Category Not es General examination HEENT: Pupils equal , round and reactive to light. No conjunctival injection. No tenderness to palpation over the maxillary sinuses. No turbinate hypertrophy. Tympanic membranes appear normal. No oral lesions. No tenderness over the occipital notch bilaterally Neck, thyroid : Supple, non-tender, no anterior cervical lymphadenopathy Heart: RRR, S1-S2, no murmu rs, no rubs, no gallops Lungs: Clear to auscultatio n and percussion in all lung aragon Abdomen: Soft, NT/ND, normal active bowel sounds Extremities: Normal ROM, no clubb ing, no cyanosis, no edema General appearance: Pleasant, well-devel oped, no distress Skin: Normal, no rash, urt icaria, angioedema Neurologic exam: Alert and oriented x 4. Fluent speech. Intact recall, fund of knowledge. Appropriate affect. PERRL. EOMI without nystagmus. No visual field cut. Facial sensation intact to light touch and pinprick in bilateral V1/V2/V3. Facial movements normal and symmetric. Hearing intact to finger rub bilaterally. Palate symmetrically upgoing. Tongue midline. Motor 5/5 strength in all extremities. Reflexes 2+/2 and symmetric in all extremities. Bilateral flexor plantar responses. Sensory exam intact to light touch, pinprick, vibration, and proprioception in all extremities. Cerebellar testing no ataxia or dysmetria. Gait normal, negative Romberg, intact tandem Oral cavity: Normal, no lesions Breasts : Not performed Peripheral pulses: normal (2+) bilatera lly Back: She has mild tendern ess over the bilateral occipital notch. She has trigger point in the left levator. She has slightly/mildly restricted ROM of her cervical spine with turning to either direction Genitalia: Not performed
--- OUTSIDE RECORDS SUMMARY | 2024-09-20 13:35 | XMS_ITS ---
Author Organization [employer] [facility] [employer] ([address]) Address [address] [place] [address] Care Team Providers Care Tray Drier Name Role Phone Dr. Nael Andersen Unavailable [phone] Shayna Schrader [phone] REASON FOR VISIT Botox BB Only Encounters Encounter Location Date Provider Diagnosis [facility] [address] [place] [address] 05/27/2024 Shayna Schrader Plan Of Treatment No Information Progress Notes * Ila PECK LDOB:1960 (63 yo F)Acc No.[id number]:05/27/2024 Progress Notes Patient: Brisa BYNUMJimmie Ila Kirkland Provider: Gustavo Schrader APRN :1960 A ge:63 Y S ex:Female Date:05/27/2024 [facility] [id number] Subjective: * Chief Complaints: * 1 . Botox BB Only. * Medical History: Objective: * Vitals: Assessment: Plan: * Treatment: * Billing Information: * Visit Code: * Procedure Codes: * Electronic signature of MELYSSA Liang on 09/20/2024 at 01:35 PM CDT Sign off status: Pending * Provider: Gustavo Schrader APRN Date: 0 05/27/2024 Generated for Darcie morrissey/Dennise/Melly on: 0 09/20/2024 01:35 PM CDT
--- OUTSIDE RECORDS SUMMARY | 2024-09-20 13:35 | XMS_ITS | Encounter Summary ---
Author Organization [facility] Address [address] [place] [address] Phone Care Team Providers Care Facilities Planner Name Role Phone Francisco Abbott MD Primary Care Provider [phone] Adi Dave MD Primary Care Provider Valerio Herrera MD Unavailable [phone] Encounter Details Date Type Department Care Team (Late st Contact Info) Description 10/30/2016 Orders Only [facility] [address] [address] Bell Brennan MD [address] [address] Social History Tobacco Use Types Packs/Day Years Used Date Smoking Tobacco: Former Cigarettes Q uit: 05/05/1985 Alcohol Use Standard Drinks/Week Comments Yes 0 (1 standard drink = 0.6 oz pur e alcohol) Comments Unknown Sex and Gender Information Value Date Recorded Sex Assigned at Not on file 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 Gender Identity Not on file Sexual Orientation Not on file documented as of this encounter Plan of Treatment Not on file documented as of this encounter Procedures Procedure Name Priority Date/Time Associated Diagnosis Comments SCREENING MAMMOGRAM 2D BILATERAL Schedule Routine, Read Routine (OP Routine) 10/14/2016 documented in this encounter Results * SCREENING MAMMOGRAM 2D BILATERAL (10/14/2016) Anatomical Region Laterality Modality Breast Bilateral Mammography Bell Brennan MD IMG MAMMO PROCEDURES Sol l Result documented in this encounter Visit Diagnoses Not on filedocumented in this encounter Additional Health Concerns Infection Onset Date Last Indicated Resolved Time COVID19 03/10/2020 03/10/2020 03/24/2020 3:07 AM 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 03/24/2020 07/14/2020 07/22/2020 3:05 AM C DT documented as of this encounter Care Teams Facilities Planner Relationship Specialty Start Date End Date Francisco Abbott MD [address] [place] [address] PCP - General 11/07/14 03/12/20 [place] [address] [facility] [address] [place] [address] PCP - General Internal Medicine 03/13/20 [place] [address] [address] [facility] [address] [place] [address] Consulting Physician Urology 08/11/20 documented as of this encounter
--- OUTSIDE RECORDS SUMMARY | 2024-09-20 13:35 | XMS_ITS | Patient Health Record ---
Author Organization [employer] [facility] [place] ([address]) Address [address] [place] [address] Care Team Providers Care Fisher Quahog Name Role Phone Dr. Nael Andersen Unavailable [phone] [facility], Provider Unavailable Unavailab Shayna Dent Unavailable [phone] Allergies Allergen (clinical drug ingredient) Drug/Non Drug Allergy documented on EMR Reaction Allergy Type Onset Date Status Penicillin rash Drug Allergy Active Reason For Referral Reason Botox, 200u q 12 wee ks Diagnosis 1 Chronic migraine wit hout aura, not intractable, without status migrainosus (G43.709) Referral Organization [facility] Referring Provider First Name Nael Referring Provider Last Name Nathaly Referring Provider Speciality Neurology Referral Priority Routine Medications Medication SIG (Take, Route, Frequency, Duration) Notes Start Date End Date Status HYDROXYZINE hydrochloride 25 mg as directed orally every 4 hours 11/07/2022 Active ALBUTEROL (EQV-PROAIR HFA) 90 MCG/INH for 16 *Please review for potential replacement for e-prescription and drug interaction check* Active BUDESONIDE 0.5 mg/2 mL for 30 Active HYDROCODONE-IBUPROFEN 5 mg-200 mg for 7 Active Budesonide 0.5 MG/2ML for 30 Active HYDROcodone-Ibuprofen 5-200 MG for 7 Active Topiramate 200 MG 1 tab(s) orally 2 times a day for 30 days Active Trelegy Ellipta 100 MCG-62.5 MCG-25 MCG/INH for 30 *Please review and pick correct strength-formulatio n from Medispan options. If intended option is not shown, discontinue and re-order from Quick Search* Active TOPIRAMATE 200 mg 1 tab(s) orally 2 times a day for 30 days Active hydrOXYzine HCl 25 MG as directed orally every 4 hours 11/07/2022 Active TRELEGY ELLIPTA 100 mcg-62.5 mcg-25 mcg/inh for 30 Active Zavzpret 10 MG/ACT 1 spray Nasally once, no repeat dose for 30 days As needed 12/04/2023 Active NURTEC ODT 75 MG 1 TAB(S) ORALLY ONCE PRN for 30 DAYS *Please review for potential replacement for e-prescription and drug interaction check* 06/05/2023 Active Social History Tobacco Use: Social History Observation Description Date Details (start date - stop date) Former Smoker NA - NA Smoking Smart Form: Question Answer Notes Are you a: former smoker Additional Findings:Tobacco Non-User Ex-pipe smo ker Problems Problem Type SNOMED Code ICD Code Onset Dates Problem Status W/U Status Risk Notes Problem Chronic migraine without aura, non-refractory (disorder) (546688262986289) Migraine without aura, not intractable, without status migrainosus (G43.009) Active confirmed Problem Migraine with aura (6361856) Migraine with aura, not intractable, without status migrainosus (G43.109) Active confirmed Problem Chronic migraine without aura, non-intractable (503666200721277) Chronic migraine without aura, not intractable, without status migrainosus (G43.709) Active confirmed Problem Drug induced headache (479102789246667) Drug-induced headache, not elsewhere classified, not intractable (G44.40) Active confirmed Problem Insomnia (313585377) Insomnia, unspecified (G47.00) Active confirmed Problem Chronic obstructive pulmonary disease (09402482) Chronic obstructive pulmonary disease, unspecified (J44.9) Active confirmed Problem Degeneration of cervical intervertebral disc (62871184) Other cervical disc degeneration, unspecified cervical region (M50.30) Active confirmed Encounters Encounter Location Date Provider Diagnosis [address] [address] 10/18/2023 Provider [facility] [address] [place] [address] [address] [place] [address] 12/04/2023 Nael Andersen Chronic migraine without aura, not intractable, without status migrainosus G43.709 [facility] [address] [place] [address] [address] [place] [address] 02/26/2024 Shayna Schrader Chronic migraine without aura, not intractable, without status migrainosus G43.[address] [address] 12/04/2023 Nael Andersen Assessments Encounter Date Diagnosis (ICD Code) Assessment Notes Treatment Notes Treatment Clinical Notes Section Notes 12/04/2023 Chronic migraine without aura, not intractable, without status migrainosus (ICD-10 - G43.709) 02/26/2024 Chronic migraine without aura, not intractable, without status migrainosus (ICD-10 - G43.709) Plan Of Treatment No Information Insurance Providers Payer Name Payer Address Payer Phone Subscriber Number Group Number Insured Name Patient Relationship to Insured Coverage Start Date Coverage End Date [facility] [id number] [place] [address] [id number] Ila Fisher Self - patient is the insured Medical (General) History Medical History History ICD Code Migraine S/p sinus surgery COPD (?[id number] given reporte d family history) HTN Ulcerative colitis s/p colectomy Renal cell carcinoma Surgical History Surgery Date(Month/Year) Right hand surgery Partial nephrectomy Sinus surgery Colectomy Hospitalization History Reason Date(Month/Year) Toxic shock syndrome
--- OUTSIDE RECORDS SUMMARY | 2024-09-20 13:35 | XMS_ITS | Encounter Summary ---
Author Organization [facility] Address [address] [place] [address] Phone Care Team Providers Care Whip Sawyer Name Role Phone Francisco Abbott MD Primary Care Provider [phone] Adi Dave MD Primary Care Provider Valerio Herrera MD Unavailable [phone] Encounter Details Date Type Department Care Team (Late st Contact Info) Description 01/10/2017 Orders Only [facility] [address] [address] Bell Brennan MD [address] [address] Social History Tobacco Use Types Packs/Day Years Used Date Smoking Tobacco: Former Cigarettes Q uit: 05/05/1985 Alcohol Use Standard Drinks/Week Comments Yes 0 (1 standard drink = 0.6 oz pur e alcohol) Comments Unknown Sex and Gender Information Value Date Recorded Sex Assigned at Not on file 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 Gender Identity Not on file Sexual Orientation Not on file documented as of this encounter Plan of Treatment Not on file documented as of this encounter Procedures Procedure Name Priority Date/Time Associated Diagnosis Comments SCREENING MAMMOGRAM 2D BILATERAL Schedule Routine, Read Routine (OP Routine) 01/10/2017 documented in this encounter Results * Screening Mammogram 2D Bilateral (01/10/2017) Anatomical Region Laterality Modality Breast Bilateral Mammography Bell Brennan MD IMG MAMMO PROCEDURES Sol l Result documented in this encounter Visit Diagnoses Not on filedocumented in this encounter Additional Health Concerns Infection Onset Date Last Indicated Resolved Time COVID19 03/10/2020 03/10/2020 03/24/2020 3:07 AM 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 03/24/2020 07/14/2020 07/22/2020 3:05 AM C DT documented as of this encounter Care Teams Whip Sawyer Relationship Specialty Start Date End Date Francisco Abbott MD [address] [place] [address] PCP - General 11/07/14 03/12/20 [place] [address] [facility] [address] [place] [address] PCP - General Internal Medicine 03/13/20 [place] [address] [address] [facility] [address] [place] [address] Consulting Physician Urology 08/11/20 documented as of this encounter
--- OUTSIDE RECORDS SUMMARY | 2024-09-20 13:35 | XMS_ITS | Encounter Summary ---
Author Organization [facility] Address 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
--- OUTSIDE RECORDS SUMMARY | 2024-09-20 13:35 | XMS_ITS ---
Author Organization [facility] ([address]) Address [address] [place] [address] Care Team Providers Care Sales Data Analyst Name Role Phone Dr. Nael Andersen Unavailable [phone] Shayna Schrader Unavailable [phone] Allergies Allergen (clinical drug ingredient) Drug/Non Drug Allergy documented on EMR Reaction Allergy Type Onset Date Status Penicillin rash Drug Allergy Active REASON FOR VISIT Botox Only Medications Medication SIG (Take, Route, Frequency, Duration) Notes Start Date End Date Status Budesonide 0.5 MG/2ML for 30 Active HYDROcodone-Ibuprofen 5-200 MG for 7 Active hydrOXYzine HCl 25 MG as directed orally every 4 hours 11/07/2022 Active Zavzpret 10 MG/ACT 1 spray Nasally once, no repeat dose for 30 days As needed 12/04/2023 Active NURTEC ODT 75 MG 1 TAB(S) ORALLY ONCE PRN for 30 DAYS *Please review for potential replacement for e-prescription and drug interaction check* 06/05/2023 Active HYDROXYZINE hydrochloride 25 mg as directed orally every 4 hours 11/07/2022 Active ALBUTEROL (EQV-PROAIR HFA) 90 MCG/INH for 16 *Please review for potential replacement for e-prescription and drug interaction check* Active HYDROCODONE-IBUPROFEN 5 mg-200 mg for 7 Active Topiramate 200 MG 1 tab(s) orally 2 times a day for 30 days Active Trelegy Ellipta 100 MCG-62.5 MCG-25 MCG/INH for 30 *Please review and pick correct strength-formulatio n from Medispan options. If intended option is not shown, discontinue and re-order from Quick Search* Active BUDESONIDE 0.5 mg/2 mL for 30 Active TOPIRAMATE 200 mg 1 tab(s) orally 2 times a day for 30 days Active TRELEGY ELLIPTA 100 mcg-62.5 mcg-25 mcg/inh for 30 Active Social History Tobacco Use: Social History Observation Description Date Details (start date - stop date) Former Smoker NA - NA Smoking Smart Form: Question Answer Notes Are you a: former smoker Additional Findings:Tobacco Non-User Ex-pipe smo ker Encounters Encounter Location Date Provider Diagnosis [facility] [address] [address] 05/20/2024 Shayna Schrader Chronic migraine without aura, not intractable, without status migrainosus G43.709 Assessments Encounter Date Diagnosis (ICD Code) Assessment Notes Treatment Notes Treatment Clinical Notes Section Notes 05/20/2024 Chronic migraine without aura, not intractable, without status migrainosus (ICD-10 - G43.709) Plan Of Treatment Next Appt Details Follow Up: 3 Months, Reason: Evaluation and Management. Toxin injection Progress Notes * Ila PECK LDOB:1960 (63 yo F)Acc No.[id number]:05/20/2024 Progress Notes Patient: Ila GOMEZ Provider: Gustavo Schrader APRN :1960 A ge:63 Y S ex:Female Date:05/20/2024 Address:[facility] [address] [facility] Subjective: * Chief Complaints: * 1 . Botox Only. * HPI: * Introduction: I had the pleasure of seeing Jose Peck, who presented for Botox. * Initial History: INITIAL VISIT HISTORY: She is Sheridan Peck's mom, who is one of our patients. Headache History: -Headache Onset: Childhood, persistent throughout her adult life.-Headache Description: Prodrome: None. Aura: None. Headache phase: [...] * Interval History: Notes P harmacologic Treatment: - Current abortive therapy: Zavzpret NS, Naratriptan 2.5 mg - Previous failed abortive therapy: Hydrocodone/Ibuprofen, Rizatriptan, Ubrelvy, Nurtec - Current preventive therapy: Botox, Topiramate 400 mg daily (been on it for a few years, previously it has marked effect but over time it has waned and headache frequency started to climb), Amitriptyline (started in February 2024 for GI issues, previously tried for migraines and it was ineffective) - Previous failed preventive therapy: Amitriptyline (taking for GI issues, ineffective for migraines) M edication overuse: Not present O ther modalities: H eadache Frequency: I nitial/baseline headache/migraine days/month:15-/8-10 L ast visit headache/migraine days/month:01/01- (Reports that she does not feel the last cycle of Botox was not as effective. She recently started amitriptyline for GI issues). C urrent headache/migraine days/month: / H eadache Scales: H IT-6: Current score: . Prior score: 60 I nterval History: L ast visit was on 1 for Botox injection.. * Headache: Last injection on 02/26/24: Procerus 5 Units, Knurling Machine Tender (Left) 5 Units, Knurling Machine Tender (Right) 5 Units, Frontalis (Left) 12.5 Units, Frontalis (Right) 12.5 Units, Temporalis (Left) 30 Units, Temporalis (Right) 30 Units, Occipitalis (Left) 25 Units, Occipitalis (Right) 25 Units, Cervical Paraspinal (Left) 10 Units, Cervical Paraspinal (Right) 10 Units, Trapezius (Left) 15 Units, Trapezius (Right) 15 Units. * ROS: A LLERGY: runny nose Y [...] History: M igraine, S/p sinus surgery, COPD (?[id number] given reported family history), HTN, Ulcerative colitis [...] *Please review and pick correct strength-formulation from [employer] Healthspan options. If intended option is not shown, [...] intractable, without status migrainosus - G43.709 (Primary) Plan: * Treatment: * Procedure Codes: 6 4615 CHEMODENERV MUSC MIGRAINE, J0585 BOTULINUM TOXIN TYPE A PER UNIT, J0585 BOTULINUM TOXIN TYPE A PER UNIT, Modifiers: JW , 72031 PT-FOCUSED HLTH RISK ASSMT, G8427 DOC MEDS VERIFIED W/PT OR RE, G2211 Complex e/m visit add on * Follow Up: 3 Months (Reason: Evaluation and Management. Toxin injection) * Billing Information: * Visit Code: 35911 Office Visit, Est Pt., Level 4. Modifiers: 90556 Office Visit, Est Pt., Level 3. Modifiers: 88866 Office Visit, Est Pt., Level 5. Modifiers: 25 * Procedure Codes: 92769 CHEMODENERV MUSC MIGRAINE. J0585 BOTULINUM TOXIN TYPE A PER UNIT. J0585 BOTULINUM TOXIN TYPE A PER UNIT. Modifiers: JW 29568 PT-FOCUSED HLTH RISK ASSMT. G8427 DOC MEDS VERIFIED W/PT OR RE. G2211 Complex e/m visit add on. * Electronic signature of MELYSSA Liang on 09/20/2024 at 01:34 PM CDT Sign off status: Pending * Provider: Gustavo Schrader APRN Date: 0 05/20/2024 Generated for Darcie morrissey/Dennise/Melly on: 0 09/20/2024 01:34 PM CDT History and Physical Notes * HPI (History of Present Illness) Category Sub-Category Detail Notes Category Notes *Introduction I had the pleasure of seeing Ila Peck, who presented for Botox *Headache Last injection on 02/26/24: Procerus 5 Units, Knurling Machine Tender (Left) 5 Units, Knurling Machine Tender (Right) 5 Units, Frontalis (Left) 12.5 Units, Frontalis (Right) 12.5 Units, Temporalis (Left) 30 Units, Temporalis (Right) 30 Units, Occipitalis (Left) 25 Units, Occipitalis (Right) 25 Units, Cervical Paraspinal (Left) 10 Units, Cervical Paraspinal (Right) 10 Units, Trapezius (Left) 15 Units, Trapezius (Right) 15 Units *Initial History INITIAL VISIT HISTORY: She is Sheridan Peck's mom, who is one of our patients. Headache History: -Headache Onset: Childhood, persistent throughout her adult life.-Headache Description: Prodrome: None. Aura: None. Headache phase: [...] headaches or migraine *Interval History Notes Pharmacologic Treatment:-Cur rent abortive therapy: Zavzpret NS, Naratriptan 2.5 mg-Previous failed abortive therapy: Hydrocodone/Ibuprofen, Rizatriptan, Ubrelvy, Nurtec-Current preventive therapy: Botox, Topiramate 400 mg daily (been on it for a few years, previously it has marked effect but over time it has waned and headache frequency started to climb), Amitriptyline (started in February 2024 for GI issues, previously tried for migraines and it was ineffective)-Previous failed preventive therapy: Amitriptyline (taking for GI issues, ineffective for migraines)Medication overuse: Not presentOther modalities: Headache Frequency:Initial/baseline headache/migraine days/month: 15-20/8-10Last visit headache/migraine days/month: 01/01-12 (Reports that she does not feel the last cycle of Botox was not as effective. She recently started amitriptyline for GI issues).Current headache/migraine days/month: /Headache Scales:HIT-6: Current score: . Prior score: 60Interval History:Last visit was on 02/26/2024 for Botox [...]
--- OUTSIDE RECORDS SUMMARY | 2024-09-20 13:35 | XMS_ITS | Encounter Summary ---
Author Organization [facility] Address 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 Gender Identity Not on file Sexual Orientation Not on file documented as of this encounter Plan of Treatment Upcoming Encounters Date Type Department Care Team (Late st Contact Info) Description 12/07/2024 10:30 AM CDT [facility] [address] [facility] [address] [place] [address] [place] [address] [facility] [address] [place] [address] documented as of this encounter Visit Diagnoses Diagnosis Type II or unspecified type diabetes mellitus without mention of complication, not stated as uncontrolled- Primary documented in this encounter
--- OUTSIDE RECORDS SUMMARY | 2024-09-20 13:35 | XMS_ITS | Clinical Summary ---
Author Organization [facility] Address [address] [facility] [address] 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 [address] [facility] [address] [place] [address] [place] [address] [address] Health Maintenance Due Date Last Done Comments DTAP/TDAP/TD VACCINES (1 - Tdap) 12/25/1979 HPV/Cotest (21-29) 1981 CERVICAL CANCER SCREENING 1990 HPV/Cotest (30-65) 1990 PAP SMEAR 1990 BREAST CANCER SCREENING 2000 COLORECTAL SCREENING 2005 Colorectal Cancer Screening 2005 FIT-DNA Q 3 years 2005 FIT/FOBT Q 1 year 2005 Flex Sig/CT Colonography Q 5 years 2005 ZOSTER VACCINE (1 of 2) 2010 INFLUENZA VACCINE (#1) 2023 RSV VACCINE (60+ or ) (1 - 1-dose 75+ series) 12/25/2035
--- OUTSIDE RECORDS SUMMARY | 2024-09-20 13:35 | XMS_ITS | Continuity of Care Document ---
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 Role Phone Adi Dave MD Unavailable Unavailable Allergies, Adverse Reactions, Alerts Substance Reaction Status Criticality penicillin G Active No Information Medications Medication Instructions Dosage Effective Dates (start - stop) Status Comments TOPIRAMATE 200MG TABLET TAKE 1 TABLET BY MOUTH TWICE DAILY - Active azithromycin 250 mg tablet take 2 tablet by oral route every day for 1 day then 1 tablet (250 mg) by oral route once daily for 4 days 500 MG - Active Guaifenesin AC 10 mg-100 mg/5 mL oral liquid take 10 milliliter by oral route every 4 hours as needed 10.00 milliliter - Active Medrol (Chapito) 4 mg tablets in a dose pack take 1 chapito by oral route as directed - Active hydrocodone 5 mg-acetaminophen 325 mg tablet take 1 tablet by oral route every 6 hours as needed for pain 1.00 tablet - Active R51 albuterol sulfate HFA 90 mcg/actuation aerosol inhaler inhale 2 puff by inhalation route every 4 hours as needed - Active Trelegy Ellipta 100 mcg-62.5 mcg-25 mcg powder for inhalation inhale 1 puff by inhalation route every day at the same time each day 1.00 puff - Active cyanocobalamin (vit B-12) 1,000 mcg/mL injection solution inject 1 milliliter by subcutaneous route every 2 weeks - Active Syringe 3 mL 25 gauge x 1 Use as directed 2 times a month - Active montelukast 10 mg tablet take 1 tablet by oral route every day in the evening 10 MG - Active ondansetron HCl 4 mg tablet take 1 tablet by oral route 3 times every day as needed 4 MG - Active topiramate 200 mg tablet take 1 tablet by oral route 2 times every day 200 MG - No Longer Active Procedures Procedure Date PREVENTATIVE-EST: 40-64 BODY MASS INDEX DOCD SYST BP GE 130 - 139MM HG DIAST BP < 80 MM HG URINALYSIS, DIPSTICK (UA) - Office Lab M Pt inelig neg scrn depres AMYLASE CBC, INC PLATELETS AND DIFFERENTIAL COMPREHEN METABOLIC PANEL CMP LIPASE URINALYSIS, DIPSTICK (UA) - Office Lab A ROUTINE VENIPUNCTURE FALL RISK ASSESSMENT DOC'D PRES/ABSN URINE INCON ASSESS OFFICE [id number] BODY MASS INDEX DOCD SYST BP LT 130 MM HG DIAST BP < 80 MM HG URINALYSIS, DIPSTICK (UA) - Office Lab F FALL RISK ASSESSMENT DOC'D PRES/ABSN URINE INCON ASSESS Pt inelig neg scrn depres PREVENTATIVE-EST: 40-64 BODY MASS INDEX DOCD SYST BP LT 130 MM HG DIAST BP < 80 MM HG COMPREHEN METABOLIC PANEL CMP LIPID PANEL THYROID STIMULATION HORMONE(TSH) 2022 ROUTINE VENIPUNCTURE Brief Emotional/Behavioral A ssessment, With Scoring/Doct, Per [facility] depression screen doc PREVENTATIVE-EST: 40-64 BODY MASS INDEX DOCD SYST BP LT 130 MM HG DIAST BP < 80 MM HG CBC, INC PLATELETS AND DIFFERENTIAL COMPREHEN METABOLIC PANEL CMP 1 ROUTINE VENIPUNCTURE FALL PLAN OF CARE DOC'D URINE INCON PLAN DOC'D PRES/ABSN URINE INCON ASSESS OFFICE [id number] BODY MASS INDEX DOCD SYST BP GE 130 - 139MM HG DIAST BP < 80 MM HG IMMUN ADMIN (INC PERCUTANEOUS) SINGLE, F IRST INJ Flu Vac, quad (RIV4), Preservative And A ntibiotic Free IM COMPREHEN METABOLIC PANEL [facility] 9 MAGNESIUM (MG), SERUM THYROID STIMULATION HORMONE(TSH) 2018 VITAMIN D, 25-HYDROXY ROUTINE VENIPUNCTURE PREVENTATIVE-EST: 40-64 BODY MASS INDEX DOCD SYST BP LT 130 MM HG DIAST BP < 80 MM HG Advance Directives Directive Yes / No Effective Date File Name No Information Encounters Encounter Description Practice Location Reason(s) For Visit Diagnoses Date Provider Providers Copied on Encounter [facility], [address], [place], [place], [address] , tel: [phone] [facility] No Information 5 Tenzin Joshi. [address] [place] [address], [address], [id number] , . tel: [phone] [facility], [address], [place], [place], [address] , tel: [phone] [facility] No Information 5 Tenzin Joshi. [address] [place] [address], [address], [place], [place], [address] , . tel: [phone] [facility], [address], [place], [place], [address] , tel: [phone] [facility] No Information 5 Tenzin Joshi. [address] [place] [address], [address], [place], [place], [address] , . tel: [phone] [facility], [address], [place], [place], [address] , tel: [phone] [facility] No Information 4 Tenzin Joshi. [address] [place] [address], [address], [place], [place], [address] , . tel: [phone] PREVENTATIVE -EST: 40-64 [facility], [address], [place], [place], [address] , tel: [phone] [facility] Chronic Conditions (chief complaint) Encounter for annual health examinationObesity (BMI 30.0-34.9)Pulmonary emphysema, unspecified emphysema typeChronic sinusitis, unspecified locationChronic nonintractable headache, unspecified headache typeScreening for breast cancerEncounter for immunizationUlcerati ve colitis with complication, unspecified locationUrinary frequency September- 4 Tenzin Joshi. [address] [place] [address], [address] , [place], [place], [address] , . tel: [phone] Referring Provider: Adi Dave, [address] [place] [address] [address], [place], [address] . tel:[phone] [facility], [address], [place], [place], [address] , tel: [phone] [facility] Abdominal pain, unspecified abdominal locationNausea 0 4 Tenzin Joshi. [address] [place] [address], [address], [place], [place], [address] , . tel: [phone] OFFICE [id number]-[id number]-OV TAILED [facility], [address], [place], [place], [address] , tel: [phone] [facility] abdominal pain (chief complaint)C hronic Conditions (chief complaint) Body mass index [BMI] 29.0-29.9, adultRight sided abdominal painNauseaChronic obstructive pulmonary disease, unspecified COPD typeChronic nonintractable headache, unspecified headache type Apr-0 4 Walt Rubin. [address] [place] [address], [address] , [place], [place], [address] [place] [address] , . tel: [phone] Referring Provider: Adi Dave, [address] [place] [address] [address] , [place], [address] . tel:[phone] [facility], [address], [place], [place], [address] , tel: [phone] [facility] Chronic fatigueMicroscopic hematuria Feb-2 4 Tenzin Joshi. [address] [place] [address], [address] , [place], [place], [address] , . tel: [phone] Referring Provider: Adi Dave, [address] [place] [address], [place], [address] . tel:[phone] PREVENTATIVE -EST: 40-64 [facility], [address], [place], [place], [address] , tel: [phone] [facility] Chronic Conditions (chief complaint) Encounter for annual health examinationPulmonary emphysema, unspecified emphysema typeChronic nonintractable headache, unspecified headache typeChronic sinusitis, unspecified locationHyperlipidem ia, unspecified hyperlipidemia typeChronic fatigueEncounter for immunizationScreenin g for breast cancerBody mass index [BMI] 29.0-29.9, adult September- 3 Tenzin Joshi. [address] [place] [address], [address] , [place], [place], [address] , . tel: [phone] Referring Provider: Adi Dave [address] [place] [address] [address] , [place], [address] . tel:[phone] [facility], [address], [place], [place], [address] , tel: [phone] [facility] Epistaxis Sep-0 2 Tenzin Joshi. [address] [place] [address], [address] , [place], [place], [address] , . tel: [phone] PREVENTATIVE -EST: 40-64 [facility], [address], [place], [place], [address] , tel: [phone] [facility] Chronic Conditions (chief complaint) Encounter for annual health examinationObesity (BMI 30.0-34.9)Pulmonary emphysema, unspecified emphysema typeChronic nonintractable headache, unspecified headache typeCancer of left kidney 1 Tenzin Joshi. [address] [place] [address], [address] , [place], [place], [address] , . tel: [phone] Referring Provider: Adi Dave, [address] [place] [address] [address], [place], [address] [place] [address] . tel:[phone] [facility], [address], [place], [place], [address] , tel: [phone] [facility] Epigastric painOther specified disorders of kidney and ureter 0 Tenzin Joshi. [address] [place] [address], [address] , [place], [place], [address] , . tel: [phone] OFFICE MSRIX-GAA-JA PANDED [facility], [address], [place], [place], [address] , tel: [phone] [facility] Chronic Conditions (chief complaint) Chronic obstructive pulmonary disease, unspecified COPD typeCough 9 Tenzin Joshi. [address] [place] [address], [address] , [place], [place], [address] , . tel: [phone] Referring Provider: Adi Dave [address] [place] [address] [address] , [place], [address] [place] [address] . tel:[phone] [facility], [address], [place], [place], [address] , tel: [phone] [facility] Dyspnea, unspecified type 9 Tenzin Joshi. [address] [place] [address], [address] , [place], [place], [address] , . tel: [phone] PREVENTATIVE -EST: 4064 [facility], [address], [place], [place], [address] , tel: [phone] [facility] Chronic Conditions (chief complaint) Encounter for annual health examinationObesity (BMI 30.0-34.9)Chronic nonintractable headache, unspecified headache typeMuscle crampsChronic pruritusShortness of breathScreening for breast cancerMouth soresBody mass index (BMI) 30.0-30.9, adult 9 Tenzin Joshi. [address] [place] [address], [address] , [place], [place], [address] , . tel: [phone] Referring Provider: Adi Dave, [address] [place] [address] [address], [place], [address] . tel:[phone] [facility], [address], [place], [place], [address] , tel: [phone] [facility] Chronic nonintractable headache, unspecified headache typeGastroesophageal reflux disease without esophagitisMouth soresRoutine physical examinationScreening for diabetes mellitusScreening for cholesterol levelScreening for thyroid disorder Aleksander August. [address] [place] [address], [address], [place], [place], [address] . tel: [phone] Referring Provider: Adi Dave, [address] [place] [address] [address], [place], [address] . tel:[phone] [facility], [address], [place], [place], [address] , tel: [phone] [facility] Obesity (BMI 30-39.9)Chronic nonintractable headache, unspecified headache typeAcute bacterial sinusitis 7 Tenzin Joshi. [address] [place] [address], [address] , [place], [place], [address] , . tel: [phone] Referring Provider: Adi Dave, [address] [place] [address] [address], [place], [address] . tel:[phone] [facility], [address], [place], [place], [address] , tel: [phone] [facility] Encounter for general health examinationObesity (BMI 30-39.9)Ulcerative pancolitis with fistulaChronic nonintractable headache, unspecified headache typeScreening for breast cancerEncounter for immunization [address] [place] [address], [address], [place], [place], [address] , . tel: [phone] Referring Provider: Adi Dave, [address] [place] [address] [address], [place], [address] . tel:[phone] Family History Family Member Type Diagnosis Age At Onset Sister Problem (finding) learning disability Mother Problem (finding) Allergies Brother Problem (finding) alzheimer's disease Father Problem (finding) stroke Immunizations Vaccine Date Status Comments Fluzone High-Dose, high dose , preservative free administered Source: Source Unspe cified Pfizer (Diluent Reconstitute d) COVID19 Vaccine, 0.3mL per dose, 2 doses, administered 21 days apart administered Source: Source Unspe cified Pfizer (Diluent Reconstitute d) COVID19 Vaccine, 0.3mL per dose, 2 doses, administered 21 days apart administered Source: Source Unspe cified Flublok, quadrivalent, preservative free, 0.5mL dosage administered Source: New Immuniza tion Record influenza, injectable, quadrivalent, (3 years or older) administered Source: New Immuniza tion Record Payers Payer name Insurance type Covered green party ID Authoriza tion(s) [employer] PREFERRED PATHWAY BL [id number] [employer] INACTIVE OUT OF STATE BL [id number] Social History Type Description Quantity Date Captured Comments Sex Female Smoking Status No Information Chief Complaint And Reason For Visit No Information Reason For Referral Reason For Referral No Information Plan Of Treatment Date Type Action Status Goal Dietary manageme nt education, guidance, and counseling completed Goal Tobacco cessation counseling completed Goal Dietary manageme nt education, guidance, and counseling completed Goal Dietary manageme nt education, guidance, and counseling completed Goal Dietary manageme nt education, guidance, and counseling completed Appointment Ila Fisher BOOKED History Of Present Illness Encounter Date Complaint History Of Prese nt Illness Chronic Conditions *See Chronic Conditions HPI abdominal pain The symptoms beg an 6 weeks ago. She states for about 6 weeks she has not felt right. She had a UTI 2/ and finished antibiotic but 'never felt better completely'. She notes she has had a cough which keeps her awake. She states she was nauseated earlier today and vomited one time with emesis of phlegm and blood. She has not lost weight since here in September 2022. She notes she has mostly right upper quadrant pain with some lower abdominal pain. Chronic Conditions *See Chronic Conditions HPI Chronic Conditions *See Chronic Conditions HPI Chronic Conditions *See Chronic Conditions HPI Chronic Conditions *See Chronic Conditions HPI Chronic Conditions *See Chronic Conditions HPI Functional Status Date Functional Assessmen t No Information Instructions Date Instruction Additional Infor beckaion Get the Shingrix. Related to Enc ounter for immunization See GI as planned. Related to Ul cerative colitis with complication, unspecified location Go for a mammogram. Related to S creening for breast cancer Check UA. Related to Urina ry frequency Continue current medications for now. Related to Chronic nonintractable headache, unspecified headache type Continue a healthy d iet, exercise, and weight loss as appropriate. Given sample of Rybelsus. Related to Obesity (BMI 30.0-34.9) Continue current medications for now. Related to Pulmonary emphysema, unspecified emphysema type F/u as planned, OK to try Singul air. Related to Chronic sinusitis, unspecified location Get appropriate vacc shantel. Return 1 year Related to Encounter for annual health examination Disease process She states for about 6 weeks she has not felt right. She had a UTI 2/ and finished antibiotic but 'never felt better completely'. She notes she has had a cough which keeps her awake. She states she was nauseated earlier today and vomited one time with emesis of phlegm and blood. She has not lost weight since here in September 2022. She notes she has mostly right upper quadrant pain with some lower abdominal pain. Related to Right sided abdominal pain Requests refill of h ydrocodone. She states the pharmacist advised her she would need to request hydrocodone-acetaminophen as hydrocodone -ibuprofen combination is not available. Sending request for hydrocodone to Dr Dave. Related to Chronic nonintractable headache, unspecified headache type Status: Able to self -manage condition. Goals: Your goal is to identify and avoid factors that make your symptoms worse. Barriers: No barriers to goal achievement have been identified. Related to Chronic obstructive pulmonary disease, unspecified COPD type She will try use of famotidine (notes she has some at home) and will send rx for ondansetron to her pharmacy Related to Nausea Dietary management e ducation, guidance, and counseling Related to Body mass index (BMI) 29.0-29.9, adult Prescribed activity/ exercise education Related to Body mass index (BMI) 29.0-29.9, adult Disease process Recommended a Prevnar. Related t o Encounter for immunization Check TSH. Related to Chron ic fatigue Go for a mammogram. Related to S creening for breast cancer Continue current medications for now. Related to Chronic nonintractable headache, unspecified headache type Follow a low cholest shahab diet and check CMP and lipids. Related to Hyperlipidemia, unspecified hyperlipidemia type F/u with specialists. Related to Chronic sinusitis, unspecified location Continue current medications for now. Related to Pulmonary emphysema, unspecified emphysema type Get appropriate vacc shantel. Return 1 year Related to Encounter for annual health examination Disease process Dietary management e ducation, guidance, and counseling Related to Body mass index (BMI) 29.0-29.9, adult Giving encouragement to exercise Related to Body mass index (BMI) 29.0-29.9, adult Check CMP, CBC today. Related to Cancer of left kidney Continue current medications for now. Related to Chronic nonintractable headache, unspecified headache type Continue current medications for now. Related to Pulmonary emphysema, unspecified emphysema type Get appropriate vaccines. Relate d to Encounter for annual health examination Continue a healthy d iet, exercise, and weight loss as appropriate. Related to Obesity (BMI 30.0-34.9) Disease process Giving encouragement to exercise Related to Body mass index (BMI) 31.0-31.9, adult Dietary management e ducation, guidance, and counseling Related to Body mass index (BMI) 31.0-31.9, adult Recommend a trial of Anoro and call results. Your goal is to manage your medicine. No barriers to goal achievement have been identified. Related to Chronic obstructive pulmonary disease, unspecified COPD type OK to try cough medi cine with codeine. Related to Cough Disease process Go for a mammogram. Related to S creening for breast cancer Needs PFTs, further to follow. R elated to Shortness of breath Most likely aphthous ulcers, she can contact me if come back. Related to Mouth sores Check labs, further to follow. R elated to Muscle cramps No new recommendations for now. Related to Chronic pruritus Refilled meds. Related to Chron ic nonintractable headache, unspecified headache type Get appropriate vaccines. Relate d to Encounter for annual health examination Continue a healthy d iet, exercise, and weight loss as appropriate. Related to Obesity (BMI 30.0-34.9) Disease process Giving encouragement to exercise Related to Body mass index (BMI) 30.0-30.9, adult Dietary management e ducation, guidance, and counseling Related to Body mass index (BMI) 30.0-30.9, adult Assessments Type Assessment Date No Information Patient Care Teams Name Effective Dates (start - stop) Status Members No Information
[2024-09-20 13:43] VITALS: BP 130/69; PULSE 100; RESP 16; TEMP 36.6; O2SAT 100
== END 2024-09-20 15:34 | disposition home or self-care (01) ==
PROVIDERS: Emergency Provider Nurse Practitioner; PCP Internal Medicine
DX: S82.831A Other fracture of upper and lower end of right fibula, initial encounter for closed fracture (principal); W17.2XXA Fall into hole, initial encounter; I10 Essential (primary) hypertension; E03.9 Hypothyroidism, unspecified
CPT/HCPCS: 29515; 73610; 99214; G0463